=== PATIENT | female | born 1965 | race Caucasian/White ===

== ENCOUNTER 2018-07-11 14:32 | Outpatient (CLI) | payer BC ==
[2018-07-11 16:10] LABS: eGFR (African) > 60; eGFR (Non-African) > 60
== END 2018-07-11 14:33 ==
LOC: LAB 14:32
PROVIDERS: ATTEND Family Medicine
DX: Z00.00 Encounter for general adult medical examination without abnormal findings (principal)
CPT/HCPCS: 36415; 80053; 80061

== ENCOUNTER 2018-07-24 09:53 | Day surgery (SDC) | payer BC ==
[~2018-07-24 09:53] MED LIST: LACTATED RINGERS 1,000 ML IV.SOLN IV ONE; LIDOCAINE HCL/PF 2% 100 MG/5 ML VIAL IJ ONE; PROPOFOL 500 MG/50 ML VIAL IV ONE; SALINE FLUSH 10 ML DISP.SYRIN IVF ONE
--- NOTE | 2018-07-25 13:46 | GI Report ---
REFERRING PHYSICIAN: Dr. Neda Yeager [employer]IVIL [employer]OTECHNICAL ENGINEER: Carlos Teran MD PROCEDURE MEDICATION: Propofol as per anesthesia. INDICATIONS: This 53-year-old woman is referred for a screening colonoscopy. This is her first colonoscopy. She denies change in her stool or blood in the stool. No family history of colorectal cancer that she is aware of. She does have hypertension. PROCEDURE PERFORMED: Colonoscopy. PROCEDURE: An Olympus video colonoscope was advanced to the rectum and slowly advanced all the way to the cecum. The appendiceal orifice and terminal ileum were normal. On slow withdrawal, the cecum, ascending colon, and transverse colon with no obvious intraluminal lesions noted. The descending colon and sigmoid with some redundancy. No obvious intraluminal lesions were noted. Retroflexion of the rectum was normal. Patient tolerated the procedure well. FINDINGS: Normal colon to the cecum. RECOMMENDATIONS: 1. A high-fiber diet. 2. Consider re-looking at her colon in 10 years, sooner if clinically indicated. cc: Dr. Neda MAJANO
== END 2018-07-24 09:54 ==
LOC: OPSURG 09:53
PROVIDERS: ATTEND Internal Medicine Gastroenterology
DX: Z12.11 Encounter for screening for malignant neoplasm of colon (principal); I10 Essential (primary) hypertension
CPT/HCPCS: 45378; 81025; J2001; J2704; J7120; S1016

== ENCOUNTER 2019-04-26 10:09 | Outpatient (CLI) | payer BC ==
[2019-05-31 07:38] LABS: eGFR (Non-African) > 60
== END 2019-04-26 10:14 | disposition home or self-care (01) ==
LOC: LAB 10:09
PROVIDERS: ATTEND Family Medicine
DX: Z13.220 Encounter for screening for lipoid disorders (principal)
CPT/HCPCS: 36415; 80053; 80061